=== PATIENT | male | born 1945 | race Caucasian/White ===

== ENCOUNTER → 2018-12-11 | Outpatient (CLI) | payer MEDICARE ==
[2018-12-09 11:12] VITALS: BMI 29.1
[2018-12-11 10:19] VITALS: BP 172/90; PULSE 69; RESP 16
--- NOTE | 2018-12-11 10:58 | P.CONS ---
History of Present Illness - Reason for Consult Consult date: 12/11/18 - Chief Complaint Left lower back pain - History of Present Illness This is a 73-year-old gentleman with history of left lower back pain and left knee pain. The pain gets worse by sitting for too long and improves by moving around and walking. His most painful activity is driving for too long. The patient has a history of osteoarthritis and lumbar disc degeneration. He had left piriformis muscle injection previously at a different clinic clinic which resulted in numbness in his left foot for 22 hours however his pain was relieved for about 2 months. The patient denies any bowel or bladder dysfunction or any weakness in the lower extremities he also denies any numbness or tingling in the lower extremities. The pain does not wake the patient up at night and he denies any weight loss recently. He states that once his left lower back pain and more accurately left buttock pain starts he feels pain in the left knee. He also states that the pain skips the thigh. Review of Systems Eyes: denies blurred vision, denies pain Cardiovascular: Denies chest pain, Denies shortness of breath Respiratory: Denies cough Musculoskeletal: Reports as per HPI Neurological: Reports as per HPI Psychiatric: Denies anxiety, Denies depression Past Medical History Past Medical History: Diabetes Mellitus, Hearing Disorder / Deafness, Hypertension, Osteoarthritis (OA), Renal Disease Additional Past Medical History / Comment(s): Essential tremors, states 50 % kidney function., states has Physical Therapy for neck pain due to arthritis and spurs., states low back pain with sciatica pain left buttocks that radiates to left knee., renetta hearing aids. History of Any Multi-Drug Resistant Organisms: None Reported Past Surgical History: Orthopedic Surgery Additional Past Surgical History / Comment(s): RIGHT CARPAL TUNNEL , RIGHT & LEFT SHOULDER ARTHROSCOPY, LEFT KNEE TORN MENISCUS., DUPUYTRENS CONTRACTURE RIGHT HAND. ,. HX OF PAIN CLINIC INJECTIONS [id number] IN [facility], AND STATES BURNING OF NERVES DONE. Past Anesthesia/Blood Transfusion Reactions: No Reported Reaction Past Psychological History: No Psychological Hx Reported Smoking Status: Former smoker Past Alcohol Use History: None Reported Additional Past Alcohol Use History / Comment(s): QUIT SMOKING AUG 14, 1986. SMOKED 1 1/2 PPD. STARTED SMOKING AGE 17. Past Drug Use History: None Reported - Past Family History Father Family Medical History: Cancer Additional Family Medical History / Comment(s): PROSTATE & BLADDER CANCER Sister(s) Family Medical History: Cancer Additional Family Medical History / Comment(s): BREAST CANCER X2 SISTERS. Medications and Allergies Home Medications Medication Instructions Recorded Confirmed Type Allopurinol [Zyloprim] 100 mg PO DAILY 12/09/18 12/11/18 History Aspirin [Adult Low Dose Aspirin EC] 81 mg PO DAILY 12/09/18 12/11/18 History Carvedilol [Coreg] 6.25 mg PO BID 12/09/18 12/11/18 History Cholecalciferol [Vitamin D3] 5,000 unit PO DAILY 12/09/18 12/11/18 History Ferrous Sulfate [Feosol] 325 mg PO DAILY 12/09/18 12/11/18 History Insulin Glargine,Hum.rec.anlog 24 unit SQ HS 12/09/18 12/11/18 History [Lantus Solostar] Insulin Lispro [humaLOG Kwikpen] 0 unit SQ TID-W/MEALS PRN 12/09/18 12/11/18 History Losartan Potassium 100 mg PO HS 12/09/18 12/11/18 History Multivitamins, Thera [Multivitamin 1 tab PO DAILY 12/09/18 12/11/18 History (formulary)] Ceiba-3 Fatty Acids/Fish Oil [Fish 1,500 mg PO DAILY 12/09/18 12/11/18 History Oil 1,000 mg Softgel] Rosuvastatin Calcium [Crestor] 5 mg PO HS 12/09/18 12/11/18 History Tart Zaldivar 1,200 mg PO DAILY 12/09/18 12/11/18 History Allergies Allergy/AdvReac Type Severity Reaction Status Date / Time No Known Allergies Allergy Verified 12/09/18 10:43 Physical Exam Vitals: Vital Signs Pulse Resp BP Pulse Ox 12/11/18 10:09 69 16 172/90 96 - Constitutional General appearance: average body habitus - EENT Eyes: PERRLA - Respiratory Respiratory: bilateral: CTA - Cardiovascular Rhythm: regular - Neurologic Neuro exam of the lower extremities showed normal and symmetrical muscle strength and deep tendon reflexes. Straight leg raising test negative bilaterally Internal and external rotation of the hip joints did not elicit any pain Osei's test negative on the left side There is tenderness in the left buttock area and the vicinity of the left piriformis muscle There is mild tenderness around the left sacroiliac joint Facet loading test is positive Neurologic: CNII-XII intact - Psychiatric Psychiatric: A&O x's 3, appropriate affect, intact judgment & insight Assessment and Plan Plan: This is a 73-year-old gentleman with the following diagnoses: Left piriformis muscle syndrome Lumbar spondylosis without myelopathy Possible left sacroiliitis Diabetes Hypertension Kidney dysfunction The patient denies taking any anticoagulants I saw the patient about repeating his piriformis muscle injection but using fluoroscopic guidance at this time and smaller volume to avoid that prolonged numbness that he had after the previous injection in his previous pain clinic . We can plan on using 40 mg of Kenalog plus only 4 MLS of Marcaine 0.25%. The patient also may benefit from getting a diagnostic lumbar medial branch block and sacral joint steroid injection in the future depending on the results of this injection. The procedure was explained to the patient and his questions were answered. I thank you for the consultation
== END ==
LOC: PNWHC3 09:58
PROVIDERS: ATTEND Anesthesiology
DX: M47.816 Spondylosis without myelopathy or radiculopathy, lumbar region (principal); G57.02 Lesion of sciatic nerve, left lower limb; N28.9 Disorder of kidney and ureter, unspecified; E11.9 Type 2 diabetes mellitus without complications; H91.90 Unspecified hearing loss, unspecified ear; I10 Essential (primary) hypertension; H91.93 Unspecified hearing loss, bilateral; Z97.4 Presence of external hearing-aid; Z87.891 Personal history of nicotine dependence; Z79.82 Long term (current) use of aspirin; Z79.899 Other long term (current) drug therapy; Z98.890 Other specified postprocedural states; Z79.4 Long term (current) use of insulin
CPT/HCPCS: 99201

== ENCOUNTER 2018-12-17 07:16 | Day surgery (SDC) | payer MEDICARE ==
[~2018-12-17 07:16] MED LIST: SODIUM CHLORIDE 0.9% 500 ML 500 ML IV SCH
[2018-12-17 07:31] VITALS: TEMP 96.6
[2018-12-17] MEDS ORDERED: IV FLUID CONTINUATION 1,000 ML IV ONE ×3 (07:32→08:51)
[2018-12-17] MEDS ORDERED: LIDOCAINE 1% 20 ML VIAL (10MG/ML) FOR IV START INTRADERMA ONE (07:38)
[2018-12-17 07:40] LABS: Glucose,Whole Blood 142 mg/dL (75-99)
--- NOTE | 2018-12-17 09:01 | FL ---
EXAMINATION TYPE: FL guided pain mgmt statistic DATE OF EXAM: 12/17/2018 CLINICAL HISTORY: Left gluteal pain. TECHNIQUE: Fluoroscopy. COMPARISON: None. FINDINGS: Fluoroscopic guidance was provided during pain relief procedure performed by Dr. Mohamud . A total of 4 seconds of fluoroscopic time was utilized during the procedure and two spot images ar e acquired. Images acquired shows needle localization at left hip or piriformis level. IMPRESSION: As Above.
[2018-12-17 09:10] VITALS: BP 160/73; PULSE 61; RESP 18
--- NOTE | 2018-12-17 13:44 | P.PCN ---
Date of Procedure: 12/17/18 Procedure(s) Performed: Procedure= left piriformis muscle steroid injections under fluoroscopy guidance Preoperative diagnosis= 1-left sacroiliitis 2-left piriformis syndrome 3- lumbar spondylosis with lumbar facet arthropathy. Postoperative diagnosis= same as preoperative diagnosis. Complication = none Condition= stable Fluoroscopy time = seconds Anesthesia= moderate sedation with Versed , and fentanyl . Description of the procedure= procedure risk and benefits discussed with the patient, including but not limited, risk of infection and bleeding, and ALLERGIC reaction to the medication and not complete pain relief and patient agreed with the preceding patient taken to the operating room, placed in prone position or standard monitors applied to the patient then after induction of anesthesia back prepped with chlorhexidine 3 times , Then under strict sterile technique, local infiltration of the skin and subcu interstitial with lidocaine 1% then 22-gauge Quincke Needle advanced slowly under fluoroscopy guidance, and placed at the location of the left piriformis muscle, after negative aspiration bupivacaine 0.25% 4 mL mixed with 40 mg of Depo-Medrol injected at the location of the left piriformis muscle, after negative aspiration under was no paresthesia during the injection, tolerated the procedure well without any consultations
== END 2018-12-17 09:25 | disposition home or self-care (01) ==
LOC: ORPAIN 07:16
PROVIDERS: ATTEND Specialist
DX: G57.02 Lesion of sciatic nerve, left lower limb (principal); M46.1 Sacroiliitis, not elsewhere classified; M47.816 Spondylosis without myelopathy or radiculopathy, lumbar region
CPT/HCPCS: 20552; J2250; J1030; J3010

== ENCOUNTER 2018-12-31 08:43 | Day surgery (SDC) | payer MEDICARE ==
[2018-12-31 09:32] VITALS: TEMP 97.9
[2018-12-31 09:44] LABS: Glucose,Whole Blood 149 mg/dL (75-99)
--- NOTE | 2018-12-31 10:26 | P.PCN ---
Date of Procedure: 12/31/18 Surgeon: Denice Ely Pathology: none sent Condition: stable Disposition: PACU Description of Procedure: Procedure= left piriformis muscle steroid injections under fluoroscopy guidance Preoperative diagnosis= 1-left sacroiliitis 2-left piriformis syndrome 3- lumbar spondylosis with lumbar facet arthropathy. Postoperative diagnosis= same as preoperative diagnosis. Complication = none Condition= stable Anesthesia= local only . Description of the procedure= procedure risk and benefits discussed with the patient, including but not limited, risk of infection and bleeding, and ALLERGIC reaction to the medication and not complete pain relief and patient agreed with proceeding. patient was taken to the operating room, placed in prone position , standard monitors applied to the patient then back prepped with chlorhexidine , Then under strict sterile technique, local infiltration of the skin and subcu tisue with lidocaine 1% was done then 22-gauge Quincke spinal Needle was advanced slowly under fluoroscopy guidance, at a point which is in the third lateral aspect of the left piriformis muscle above the left femoral head. Then I injected 1 mL of Isovue which showed the typical transverse spread of the dye following the piriformis muscle track.there was no paresthesia during this procedure and after negative aspiration for blood I injected 4 MLS of lidocaine 1% +10 mg of Decadron. The patient's tolerated the procedure well without any consultations.
[2018-12-31 10:31] VITALS: BP 156/72; PULSE 67; RESP 16
--- NOTE | 2018-12-31 10:31 | FL ---
EXAMINATION TYPE: FL guided pain mgmt statistic DATE OF EXAM: 12/31/2018 HISTORY: Pain LT piriformis. 4 sec fl time. 1 image scanned.
== END 2018-12-31 10:45 | disposition home or self-care (01) ==
LOC: ORPAIN 08:43
PROVIDERS: ATTEND Anesthesiology
DX: M46.1 Sacroiliitis, not elsewhere classified (principal); M46.96 Unspecified inflammatory spondylopathy, lumbar region; I10 Essential (primary) hypertension; E11.9 Type 2 diabetes mellitus without complications
CPT/HCPCS: 20552; J1100; J2001; Q9966

== ENCOUNTER → 2019-01-19 | Outpatient (CLI) | payer MEDICARE ==
[2019-01-19 13:56] VITALS: BP 160/88; PULSE 68; RESP 16
--- NOTE | 2019-01-19 15:11 | P.PN ---
Subjective Progress Note Date: 01/19/19 This is follow-up visit for this 73-year-old gentleman with history of left lower back pain and left knee pain. Patient diagnosed with lumbar spondylosis, and left piriformis syndrome, he had radiofrequency ablation of the medial branch lumbar area on a different pain clinic few years ago he reported that he has 0 benefit from it, he continued to have severe low back pain radiating to the left buttock area and left lower extremity, a few weeks ago we have done left-sided piriformis muscle block 2, patient reported that he had excellent pain relief from the pain relief was only for short-term, he denies any fever or night sweats he denies any motor or sensory deficits, he is able to ambulate without difficulty, but he is complaining of severe left buttock pain with radiation to the left leg Physical Examinations : -Constitutiona : Cooperative , not in acute distress . -HEENT : nech ; supple , no Lymphadenopathy , normal thyroid size . eyes : no ptosis , no icterus, no photophobia Lumber spine moter stegnth lower extremities ,thigh and legs 5/5 Right side , 5/5 Left side deep tendon reflexes : normal Knee Jerk , normal ankle Jerk positive lumber facet Loading Test Range of motion of the lumbar spine Flexion 60 degrees, strait leg raising test negative bilaterally Fabere test positive RT and positive LT . Sever tenderness over the left pirif ormis Assessment and plan= left sided piriformis syndrome status post left piriformis muscle steroid injections, patient had good pain relief but only for short term Discussed with the patient the option of repeating the injection versus physical therapy, patient reported that he had physical therapy in the past without any benefit He is not interested in repeating the injection, the best option at this point is to prescribe muscle relaxant baclofen 10 mg daily at bedtime when necessary, patient will follow with the pain clinic when necessary - PQRS measures = - Patient's medications are documented in the chart. -Tobacco use is negative and counseling.Given. -Patient's has not received pneumococcal vaccine. -Advanced care planning discussed, patient not eligible. -Opiate contract not signed. -Pain positive and follow-up when necessary -Patient's blood pressure measured [160/88 ] , and documented in the record ,and patient will follow up with the primary care. -Patient's weight was measured and body mass index [29 point ] above the, counseling was done. and patient instructed to follow-up with the primary care physician. -Patient was not identified as an unhealthy alcohol user Objective - Vital Signs Vital signs: Vital Signs Temp Pulse 68 01/19/19 13:51 Resp 16 01/19/19 13:51 BP 160/88 01/19/19 13:51 Pulse Ox 99 01/19/19 13:51 Intake & Output 01/18/19 01/19/19 01/19/19 18:59 06:59 18:59 Weight 97.522 kg
== END | disposition home or self-care (01) ==
LOC: PNWHC3 13:00
PROVIDERS: ATTEND Specialist
DX: G57.02 Lesion of sciatic nerve, left lower limb (principal); M47.816 Spondylosis without myelopathy or radiculopathy, lumbar region; M25.562 Pain in left knee
CPT/HCPCS: 99211

== ENCOUNTER 2019-05-02 06:55 | Day surgery (SDC) | payer MEDICARE ==
[2019-04-29 14:19] VITALS: BMI 29.8
[2019-05-02 07:10] VITALS: TEMP 97.8
[2019-05-02] MEDS ORDERED: LIDOCAINE 2% SYG (PF) 100 MG/5 ML MISCELLANE ONE (07:12)
[2019-05-02] MEDS ORDERED: LACTATED RINGERS 1,000 ML IV ONE ×2 (07:13)
[2019-05-02 07:14] LABS: Glucose,Whole Blood 121 mg/dL (75-99)
[2019-05-02] MEDS ORDERED: LIDOCAINE 1% 20 ML VIAL (10MG/ML) FOR IV START INTRADERMA PRN (07:17)
[2019-05-02] MEDS ORDERED: LACTATED RINGERS 1,000 ML IV SCH (07:17)
[2019-05-02] MEDS ORDERED: LIDOCAINE 1% INJ 10MG/ML (20 ML MDV) ONE (07:27)
[2019-05-02] MEDS ORDERED: PROPOFOL 10 MG/ML 20 ML VIAL IV ONE (07:27)
[2019-05-02 07:57] VITALS: BP 176/74
--- NOTE | 2019-05-02 07:57 | P.PCN ---
Date of Procedure: 05/02/19 Procedure(s) Performed: BRIEF HISTORY: Patient is a 73-year-old pleasant, scheduled for an elective colonoscopy as a part of evaluation of Hemoccult-positive stool. PROCEDURE PERFORMED: Colonoscopy with snare polypectomy. PREOPERATIVE DIAGNOSIS: Hemoccult-positive stool IV sedation per Anesthesia. PROCEDURE: After informed consent was obtained, the patient, was brought into the endoscopy unit. IV sedation was administered by Anesthesia under continuous monitoring. Digital rectal examination was normal. Initially the Olympus CF-160 flexible video colonoscope was then inserted in the rectum, gradually advanced into the cecum without any difficulty. Careful examination was performed as the scope was gradually being withdrawn. Ileocecal valve and the appendiceal orifice were visualized and appeared normal. Prep was excellent. Mucosa of the cecum, ascending colon, transverse colon, descending colon, sigmoid colon, and rectum appeared normal. There was a 7-8 mm; polyp that was removed by snare polypectomy. Scattered sigmoid diverticulosis. Retroflexion was performed in the rectum and no lesions were seen. The patient tolerated the procedure well. IMPRESSION: 7-8 mm; sigmoid colon polyp status post polypectomy Scattered sigmoid diverticulosis RECOMMENDATIONS: Findings of this examination were discussed with the patient as well as his family. He was advised to follow with the biopsy results. If the biopsy shows an adenoma, he can have a repeat colonoscopy in 5 years.
[2019-05-02 08:11] VITALS: PULSE 59; RESP 16
== END 2019-05-02 08:26 | disposition home or self-care (01) ==
LOC: ORWHC2ENDO 06:55
PROVIDERS: ATTEND Internal Medicine Gastroenterology
DX: D12.5 Benign neoplasm of sigmoid colon (principal); K57.30 Diverticulosis of large intestine without perforation or abscess without bleeding; N28.9 Disorder of kidney and ureter, unspecified; E11.9 Type 2 diabetes mellitus without complications; I10 Essential (primary) hypertension; H91.90 Unspecified hearing loss, unspecified ear; Z87.891 Personal history of nicotine dependence; Z79.82 Long term (current) use of aspirin; Z79.4 Long term (current) use of insulin; Z79.899 Other long term (current) drug therapy
CPT/HCPCS: 88305; 45385; J2001 ×2; J2704